=== PATIENT | female | born 1965 | race Caucasian/White ===

== ENCOUNTER 2018-06-10 06:30 | Emergency (ER) | payer SELFPAY ==
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
[2018-06-10 07:48] LABS: BASOPHILS % 0.5 (0.0-1.5); MEAN CORPUSCULAR HEMOGLOBIN 30.8 pg (28.0-34.0); MONOCYTES % 4.6 % (0.0-11.0); NEUTROPHILS # 5.7 # k/uL (1.4-7.7)
[2018-06-10 08:17] LABS: eGFR (Non-African) > 60
[2018-06-10 08:53] LABS: APPEARANCE,URINE CLEAR (CLEAR); COLOR,URINE YELLOW (YELLOW); OCCULT BLOOD,URINE 1+ (NEGATIVE); PH URINE 6.5 (5.0 - 8.0); UROBILINOGEN URINE 0.2 Eu (0.2-1.0)
[2018-06-10] MEDS ORDERED: LEVOFLOXACIN 500 MG TABLET PO ONE (08:53)
[2018-06-10 08:55] LABS: CANNABINOIDS NEGATIVE ng/mL (< 50); METHYLENEDIOXYMETHAMPHETAMINE NEGATIVE ng/mL (<500)
[2018-06-10 10:23] VITALS: BP 140/97
--- NOTE | 2018-06-10 15:37 | Diagnostic Imaging Report ---
<p>Your browser does not support iframes.</p> MARITO BAILEY [id number] [address] [place] [address]. [id number] Report Submission Date: Jun 10, 2018 7:56:22 AM MEMBER SERVICES REPRESENTATIVE Patient Study Name: EFRAIN PUGA Date: Jun 10, 2018 7:29:30 AM MEMBER SERVICES REPRESENTATIVE Modality Type: DX Gender: F Description: CHEST 1VIEW : 67 Institution: [facility] Physician: MARITO BAILEY Examination: Portable chest History: Evaluate lungs Comparison exam: None provided. Findings: Single view of the chest demonstrates a normal cardiac and mediastinal silhouette. Lung brady without focal infiltrate. No blunting of the costophrenic margins. Left upper lung granuloma. Osseous structures are appropriate for age. Impression: No acute pulmonary process. Electronically signed on Jun 10, 2018 7:56:22 AM MEMBER SERVICES REPRESENTATIVE by: Linwood RIOS
== END 2018-06-10 10:31 | disposition home or self-care (01) ==
LOC: ED 06:30
DX: F41.8 Other specified anxiety disorders (principal); N30.00 Acute cystitis without hematuria; B96.20 Unspecified Escherichia coli [E. coli] as the cause of diseases classified elsewhere
CPT/HCPCS: 36415; 71045; 80053; 80377; 81002; 84443; 84484; 85025; 87086; 87186; 99284; 99285; G0481